=== PATIENT | male | born 2000 | race Caucasian/White ===

== ENCOUNTER 2025-03-29 11:38 | Emergency (ER) | payer OTHER, SELFPAY ==
[2025-03-29 11:51] VITALS: BP 132/68; PULSE 61; RESP 16; TEMP 36.6; O2SAT 98
--- NOTE | 2025-03-29 12:18 | ED.EAR ---
HPI - Ear Problem General Chief complaint: Ear Stated complaint: Ear Pain Time Seen by Provider: 03/29/25 12:06 Source: patient and RN notes reviewed Mode of arrival: ambulatory Limitations: no limitations History of Present Illness HPI Narrative: Patient presents today complaining of left ear pain and muffling since yesterday. Denies any additional symptoms. Currently rates his pain 4/10 and has been taking ibuprofen with mild relief. Has had an otitis externa in the past. Related Data Allergies Allergy/AdvReac Type Severity Reaction Status Date / Time No Known Allergies Allergy Verified 03/29/25 11:41 PMFSH Comments At time of signature, I have reviewed and agree with nursing past medical, surgical, social and family history unless otherwise noted. Please see nursing chart for further information. There is no relevant family history pertinent to the presenting complaint Exam Narrative: GENERAL: Well-appearing, well-nourished, and in no acute distress. HEAD: Normocephalic, atraumatic. EYES: EOMI. No redness or drainage. Conjunctivae normal. ENT: Mucous membranes pink and moist. Nares clear. No rhinorrhea. Right TM and canal normal. Left ear: Tragal tenderness but no movement tenderness. Left TM is occluded with moderately swollen and erythematous canal. No active drainage or debris noted. No mastoid process tenderness. Wick placed. NECK: Normal AROM. Supple. No lymphadenopathy. CHEST: No respiratory distress. EXTREMITIES: Normal range of motion. No edema. SKIN: Warm, dry, no rash. Capillary refill normal. Normal skin turgor. NEURO: No focal deficits. Alert and oriented x3. Gait steady. PSYCH: Normal affect. No signs of depression or anxiety. Course Course Level of Care: Express Care Visit Vital Signs Vital signs: Vital Signs Temperature 97.9 F 03/29/25 11:51 Pulse Rate 61 03/29/25 11:51 Respiratory Rate 16 03/29/25 11:51 Blood Pressure 132/68 03/29/25 11:51 Pulse Oximetry 98 03/29/25 11:51 Temperature 97.9 F 03/29/25 11:51 Pulse Rate 61 03/29/25 11:51 Respiratory Rate 16 03/29/25 11:51 Blood Pressure 132/68 03/29/25 11:51 Pulse Oximetry 98 03/29/25 11:51 Reviewed Medical Decision Making MDM Narrative Medical decision making narrative: 24-year-old male patient presents today with left ear pain hand muffling since yesterday. Upon exam, moderately swollen canal with erythema and tragal tenderness. No mastoid tenderness. Wick placed. Patient will be treated with Ciprodex for left otitis externa. Will continue NSAIDs for pain. Vital signs stable. Anticipatory guidance given. Differential Diagnosis Differential Diagnosis: Otitis media, otitis externa, ruptured TM, serous otitis, cerumen impaction Vital Signs Vital Signs: Vital Signs Temperature 97.9 F 03/29/25 11:51 Pulse Rate 61 03/29/25 11:51 Respiratory Rate 16 03/29/25 11:51 Blood Pressure 132/68 03/29/25 11:51 Pulse Oximetry 98 03/29/25 11:51 Temperature 97.9 F 03/29/25 11:51 Pulse Rate 61 03/29/25 11:51 Respiratory Rate 16 03/29/25 11:51 Blood Pressure 132/68 03/29/25 11:51 Pulse Oximetry 98 03/29/25 11:51 Critical Care Time Critical Care Time Critical Care Time: No Discharge Plan Discharge Clinical Impression: Left otitis externa Patient Disposition: Home Condition: Stable Instructions: Swimmer's [facility] (ED) Additional Instructions: Please use the ear drops for your infection in the ear canal as prescribed. The ear wick that was placed will fall off on its own. Take Tylenol or ibuprofen for pain. Please use the ear drops as directed. Keep the ears dry as possible. Do not submerge your head in standing water such as pools, hot tubs, lakes, bathtubs, until the infection has resolved. Showering is fine. Do not use anything in the ear that can be irritating such as Q-tips, ear plugs, ear buds. Follow-up with your PCP in 3 days if symptoms are not improving. Your blood pressure was elevated above 120/80 today at Urgent Care. This puts you above the threshold for follow up. Please schedule a followup visit with your personal physician as soon as possible, for further evaluation and treatment. Even blood pressure exceeding 120/80 may indicate pre-hypertension. Patient Language: Japanese Prescriptions: New ciprofloxacin-dexamethasone 0.3-0.1 % drops,suspension 4 drp LEFT EAR Q12H 7 Days Qty: 7.5 0RF Follow-up/Referrals: PHYSICIAN,PRENATAL GENETIC COUNSELOR [Primary Care Provider] - Time of Disposition: 12:23
== END 2025-03-29 12:24 | disposition home or self-care (01) ==
PROVIDERS: Emergency Provider Nurse Practitioner
DX: H60.92 Unspecified otitis externa, left ear (principal)
CPT/HCPCS: 99203; G0463